=== PATIENT | female | born 1995 | race Caucasian/White ===

== ENCOUNTER 2018-09-25 10:24 | Inpatient (IN) | payer OTHER ==
[~2018-09-25] VITALS: Ht 172.7 cm; Wt 74.0 kg
[2018-09-26] MEDS ORDERED: VITAFOL-OB+DHA1 EACH PO (00:41)
[2018-09-26] MEDS ORDERED: IRON325 M1 PO (00:42)
--- NOTE | 2018-09-26 12:12 | PR ---
[facility] [address] [place], [place] [address] Signed Progress Notes IP Datetime Report Generated by CPAmber: 09/26/2018 12:12 PROGRESS NOTES: [id number] Impression: Normal progression of labor; Reassuring heart rate Procedures: Artificial ROM; Sterile Vag Exam Plan: Continue present management Informed Consent Obtain: Vaginal Delivery Other Informed Consents: Epidural on demand VITAL SIGNS: [id number] Vital Signs: Reviewed; Within Normal Limits EXAM: [id number] Dilatation: 3.0 Effacement: 80 Station: -3 Uterine Contractions: Irregular MEMBRANES: [id number] Membrane Status: Intact Comments: Pt seen and examined. Doing well. Uncomfortable w/ ctx. Cx now favorable. Recommend AROM and pt understands and agrees. After verbal consent and assuring vertex well applied, AROM performed without difficulty for moderate amount clear fluid. Mother and fetus tolerated well. Continue expectant management. Epidural on demand. Fetus A: [id number] FHR Baseline: 120 Variability: Moderate 6-25bpm Accelerations: 15X15 Decelerations: None FHR Category: Category I Presentation: Vertex Comments on Fetus A: No evidence of metabolic acidosis Fetus B: [id number] Signing Physician: Shabana Cary DO Copies: ~ *Electronically Signed* 09/26/18 1212 SHABANA CARY DO PATIENT NAME: WILLARD LOZANO PROGRESS NOTE DATE OF : 96 PHYSICIAN: SHABANA CARY DO [facility] #: [id number] REPORT IS CONFIDENTIAL AND NOT TO BE RELEASED WITHOUT AUTHORIZATION
--- NOTE | 2018-09-26 14:12 | PR ---
[facility] [address] [place], [place] [address] Signed Progress Notes IP Datetime Report Generated by CPN: 09/26/2018 14:12 PROGRESS NOTES: [id number] Impression: Normal progression of labor Procedures: Sterile Vag Exam Other Procedures: scalp stim Plan: Continue present management Other Plans: Intrauterine recussitation Informed Consent Obtain: Vaginal Delivery Other Informed Consents: Epidural on demand VITAL SIGNS: [id number] Vital Signs: Reviewed VS Notable Details: hypotenision noted after epidural EXAM: [id number] Dilatation: 5.0 Effacement: 90 Station: -2 Uterine Contractions: q2-4 minutes MEMBRANES: [id number] Membrane Status: Intact Comments: Late noted from 13:40. Presented to L_D for recurrent late decelerations. Pt s/p epidural. Comfortable w/ epidural. Some hypotension noted after epidural. Pt repositioned, fluid bolus started, and O2 applied. Continued moderate variability. Scalp stim performed with resulting acceleration noted. Continue intrauterine recussitation. Wll give ephedrine 5mg IV now. Continue to monitor closely. Fetus A: [id number] FHR Baseline: 140 Variability: Moderate 6-25bpm Accelerations: None Decelerations: Late FHR Category: Category II Presentation: Vertex Comments on Fetus A: Late decelerations noted; reassured by moderate variability and accel in response to scalp stim Fetus B: [id number] Signing Physician: Shabana Cary DO Copies: *Electronically Signed* 09/26/18 1740 SHABANA CARY DO PATIENT NAME: WILLARD LOZANO PROGRESS NOTE DATE OF : 96 PHYSICIAN: SHABANA CARY DO RPT #: [id number] REPORT IS CONFIDENTIAL AND NOT TO BE RELEASED WITHOUT AUTHORIZATION [address] [place], [place] [address] Signed ~ *Electronically Signed* 09/26/18 1412 SHABANA CARY DO PATIENT NAME: WILLARD LOZANO PROGRESS NOTE DATE OF : 96 PHYSICIAN: SHABANA CARY DO RPT #: [id number] REPORT IS CONFIDENTIAL AND NOT TO BE RELEASED WITHOUT AUTHORIZATION
--- NOTE | 2018-09-26 14:25 | PR ---
[facility] [address] [place], [place] [address] Signed Progress Notes IP Datetime Report Generated by CPAmber: 09/26/2018 14:25 PROGRESS NOTES: [id number] Impression: Normal progression of labor Procedures: Sterile Vag Exam Other Procedures: scalp stim Plan: Augmentation Other Plans: Intrauterine recussitation Informed Consent Obtain: Vaginal Delivery; Section Delivery Other Informed Consents: Epidural on demand VITAL SIGNS: [id number] Vital Signs: Reviewed; Within Normal Limits VS Notable Details: BPs improved w/ ephedrine EXAM: [id number] Dilatation: 5.0 Effacement: 90 Station: -2 Uterine Contractions: Irregular MEMBRANES: [id number] Membrane Status: Intact Comments: Continued intrauterine recusssitation. BPs have improved now s/p ephedrine. Continued IV fluid bolus. Discussed indications for continued trial of labor vs . Amniotic fluid clear and cervix stretchy. Will give terbutaline x 1 dose and monitor response. Pt understands and agrees. Fetus A: [id number] FHR Baseline: 150 Variability: Minimal - Undetectable to <5bpm Accelerations: None Decelerations: Late FHR Category: Category II Presentation: Vertex Comments on Fetus A: Late decelerations noted; reassured by moderate variability and accel in response to scalp stim Fetus B: [id number] Signing Physician: Shabana Cary DO Copies: *Electronically Signed* 09/26/18 2780 SHABANA CARY DO PATIENT NAME: WILLARD LOZANO PROGRESS NOTE DATE OF : 96 PHYSICIAN: SHABANA CARY DO RPT #: [id number] REPORT IS CONFIDENTIAL AND NOT TO BE RELEASED WITHOUT AUTHORIZATION [address] [address] Signed ~ *Electronically Signed* 09/26/18 1425 SHABANA CARY DO PATIENT NAME: WILLARD LOZANO PROGRESS NOTE DATE OF : 96 PHYSICIAN: SHABANA CARY DO RPT #: [id number] REPORT IS CONFIDENTIAL AND NOT TO BE RELEASED WITHOUT AUTHORIZATION
--- NOTE | 2018-09-26 14:45 | PR ---
[facility] [address] [place], [place] [address] Signed Progress Notes IP Datetime Report Generated by VINAYAK: 09/26/2018 14:45 PROGRESS NOTES: [id number] Impression: Normal progression of labor; Reassuring heart rate Procedures: Sterile Vag Exam Other Procedures: scalp stim Plan: Continue present management Other Plans: Intrauterine recussitation Informed Consent Obtain: Vaginal Delivery; Section Delivery Other Informed Consents: Epidural on demand VITAL SIGNS: [id number] Vital Signs: Reviewed; Within Normal Limits VS Notable Details: BPs improved w/ ephedrine EXAM: [id number] Dilatation: 5.0 Effacement: 90 Station: -2 Uterine Contractions: q1-4 minutes MEMBRANES: [id number] Membrane Status: Intact Comments: Pt seen and evaluated. Late decelerations have resolved. Minimal variability remains. Ctxs spacing secondary to terbutaline. Will continue to monitor closely. Reviewed w/ pt. All questions answered. Fetus A: [id number] FHR Baseline: 140 Variability: Minimal - Undetectable to <5bpm Accelerations: None Decelerations: None FHR Category: Category II Presentation: Vertex Comments on Fetus A: Late decelerations have resolved. Minimal variablity Fetus B: [id number] Signing Physician: Shabana Cary DO Copies: ~ *Electronically Signed* 09/26/18 1445 SHABANA CARY DO PATIENT NAME: WILLARD LOZANO PROGRESS NOTE DATE OF : 96 PHYSICIAN: SHABANA CARY DO RPT #: [id number] REPORT IS CONFIDENTIAL AND NOT TO BE RELEASED WITHOUT AUTHORIZATION
--- NOTE | 2018-09-26 14:53 | PR ---
[facility] [address] [place], [place] [address] Signed Progress Notes IP Datetime Report Generated by VINAYAK: 09/26/2018 14:53 PROGRESS NOTES: [id number] Impression: Normal progression of labor; Reassuring heart rate Procedures: Scalp Electrode; Sterile Vag Exam Other Procedures: scalp stim Plan: Continue present management Other Plans: Intrauterine recussitation Informed Consent Obtain: Vaginal Delivery Other Informed Consents: Epidural on demand VITAL SIGNS: [id number] Vital Signs: Reviewed; Within Normal Limits VS Notable Details: BPs improved w/ ephedrine EXAM: [id number] Dilatation: 7.0 Effacement: 90 Station: -1 Uterine Contractions: q2-4 mintues MEMBRANES: [id number] Membrane Status: Intact Comments: Pt seen and examined. Reviewed late decelerations have resolved. Recommended FSE. FSE placed without difficulty. Acceleration noted in response to scalp stim. Will continue to monitor Fetus A: [id number] FHR Baseline: 140 Variability: Minimal - Undetectable to <5bpm Accelerations: 15X15 Decelerations: None FHR Category: Category II Presentation: Vertex Other Presentation: LYNDSEY Comments on Fetus A: No evidence of metabolic acidosis Fetus B: [id number] Signing Physician: Shabana Cary DO Copies: *Electronically Signed* 09/26/18 1453 SHABANA CARY DO PATIENT NAME: WILLARD LOZANO PROGRESS NOTE DATE OF : 96 PHYSICIAN: SHABANA CARY DO RPT #: [id number] REPORT IS CONFIDENTIAL AND NOT TO BE RELEASED WITHOUT AUTHORIZATION [facility] [address] [place] [id number] Signed ~ *Electronically Signed* 09/26/18 1453 SHABANA CARY DO PATIENT NAME: WILLARD LOZANO PROGRESS NOTE DATE OF : 96 PHYSICIAN: SHABANA CARY DO RPT #: [id number] REPORT IS CONFIDENTIAL AND NOT TO BE RELEASED WITHOUT AUTHORIZATION
--- NOTE | 2018-09-26 15:51 | PR ---
[facility] [address] [place], [place] [address] Signed Progress Notes IP Datetime Report Generated by VINAYAK: 09/26/2018 15:51 PROGRESS NOTES: [id number] Impression: Normal progression of labor; Reassuring heart rate Procedures: Scalp Electrode; Sterile Vag Exam Other Procedures: scalp stim Plan: Continue present management Other Plans: Intrauterine recussitation Informed Consent Obtain: Vaginal Delivery Other Informed Consents: Epidural on demand VITAL SIGNS: [id number] Vital Signs: Reviewed; Within Normal Limits VS Notable Details: BPs improved w/ ephedrine EXAM: [id number] Dilatation: 7.0 Effacement: 90 Station: -1 Uterine Contractions: q 2-5 minutes MEMBRANES: [id number] Membrane Status: Intact Comments: Pt seen and evaluated. Comfortable w/ epidural. Reviewed category 1 tracing. Reviewed anticipate course of labor and delivery. All questions answered. O2 removed. Fetus A: [id number] FHR Baseline: 130 Variability: Moderate 6-25bpm Accelerations: 15X15 Decelerations: None FHR Category: Category I Presentation: Vertex Other Presentation: LYNDSEY Comments on Fetus A: No evidence of metabolic acidosis Fetus B: [id number] Signing Physician: Shabana Cary DO Copies: *Electronically Signed* 09/26/18 1554 SHABANA CARY DO PATIENT NAME: WILLARD LOZANO PROGRESS NOTE DATE OF : 96 PHYSICIAN: SHABANA CARY DO RPT #: [id number] REPORT IS CONFIDENTIAL AND NOT TO BE RELEASED WITHOUT AUTHORIZATION [facility] [address] [place] [address] Signed ~ *Electronically Signed* 09/26/18 1551 SHABANA CARY DO PATIENT NAME: WILLARD LOZANO PROGRESS NOTE DATE OF : 96 PHYSICIAN: SHABANA CARY DO RPT #: [id number] REPORT IS CONFIDENTIAL AND NOT TO BE RELEASED WITHOUT AUTHORIZATION
--- NOTE | 2018-09-26 18:20 | PR ---
[facility] [address] [place], [place] [address] Signed Progress Notes IP Datetime Report Generated by VINAYAK: 09/26/2018 18:19 PROGRESS NOTES: [id number] Impression: Normal progression of labor; Reassuring heart rate Procedures: Sterile Vag Exam Other Procedures: scalp stim Plan: Continue present management; Anticipate Vaginal Delivery Other Plans: Intrauterine recussitation Informed Consent Obtain: Vaginal Delivery Other Informed Consents: Epidural on demand VITAL SIGNS: [id number] Vital Signs: Reviewed; Within Normal Limits VS Notable Details: BPs improved w/ ephedrine EXAM: [id number] Dilatation: 9.5 Effacement: 100 Station: -1 Uterine Contractions: q 2-5 min MEMBRANES: [id number] Membrane Status: Intact Comments: Pt seen and examined. Doing well. Comfortable w/ ctxs. Anticipated soon. Reviewed anticipated course of remainder labor/delivery. All questions answered Fetus A: [id number] FHR Baseline: 125 Variability: Moderate 6-25bpm Accelerations: 15X15 Decelerations: None FHR Category: Category I Presentation: Vertex Other Presentation: LYNDSEY Comments on Fetus A: No evidence of metabolic acidosis Fetus B: [id number] Signing Physician: Shabana Cary DO Copies: *Electronically Signed* 09/26/18 1819 SHABANA CARY DO PATIENT NAME: WILLARD LOZANO PROGRESS NOTE DATE OF : 96 PHYSICIAN: SHABANA CARY DO RPT #: [id number] REPORT IS CONFIDENTIAL AND NOT TO BE RELEASED WITHOUT AUTHORIZATION [facility] [address] [place] [address] [place] [address] Signed ~ *Electronically Signed* 09/26/18 181 SHABANA CARY DO PATIENT NAME: WILLARD LOZANO PROGRESS NOTE DATE OF : 96 PHYSICIAN: SHABANA CARY DO RPT #: [id number] REPORT IS CONFIDENTIAL AND NOT TO BE RELEASED WITHOUT AUTHORIZATION
--- NOTE | 2018-09-26 19:47 | PR ---
[facility] [address] [place], [place] [address] Signed Progress Notes IP Datetime Report Generated by CPN: 09/26/2018 19:47 PROGRESS NOTES: [id number] Impression: Normal progression of labor; Reassuring heart rate Procedures: Sterile Vag Exam Other Procedures: scalp stim Plan: Anticipate Vaginal Delivery Other Plans: Intrauterine recussitation Informed Consent Obtain: Vaginal Delivery Other Informed Consents: Epidural on demand VITAL SIGNS: [id number] Vital Signs: Reviewed; Within Normal Limits VS Notable Details: BPs improved w/ ephedrine EXAM: [id number] Dilatation: 10.0 Effacement: 100 Station: 1 Uterine Contractions: q 2-3 minutes MEMBRANES: [id number] Membrane Status: Intact Comments: Pt seen and examined. Doing well. Starting to pressure and urge to push. Reviewed 2nd stage of labor. Anticipate soon. Fetus A: [id number] FHR Baseline: 125 Variability: Moderate 6-25bpm Accelerations: 15X15 Decelerations: None FHR Category: Category I Presentation: Vertex Other Presentation: LYNDSEY Comments on Fetus A: No evidence of metabolic acidosis Fetus B: [id number] Signing Physician: Shabana Cary DO Copies: ~ *Electronically Signed* 09/26/181946 SHABANA CARY DO PATIENT NAME: WILLARD LOZANO PROGRESS NOTE DATE OF : 96 PHYSICIAN: SHABANA CARY #: [id number] REPORT IS CONFIDENTIAL AND NOT TO BE RELEASED WITHOUT AUTHORIZATION
--- NOTE | 2018-09-27 10:27 | PR ---
[facility] [address] [facility] [place], [place] [address] Signed PP Progress Notes Datetime Report Generated by CPN: 09/27/2018 10:27 SUBJECTIVE: [id number] Pain: Within normal limits Nausea/Vomiting: Denies Flatus: No Bowel Movement: No Vital Signs: [id number] Vital Signs: Reviewed; Within Normal Limits EXAM: [id number] Cardiovascular: Normal Respiratory: Normal Abdomen/Uterus: Normal Lochia: Normal Vulva/Perineum: Not Done Breasts: Not Done CVA Tenderness: Normal Extremities: Normal Incision: Not Applicable Progress: Normal Exam Comments: Fundus firm U-2 nontender. Vulva edematous per RN. Marylou cath in place IMPRESSION/PLAN/PROCEDURES: [id number] Impression: Normal progression Plan: Continue present management Signing Physician: Shabana Cary DO Copies: ~ *Electronically Signed* 09/27/18 1027 SHABANA CARY DO PATIENT NAME: WILLARD LOZANO PROGRESS NOTE DATE OF : 96 PHYSICIAN: SHABANA CARY DO RPT #: [id number] REPORT IS CONFIDENTIAL AND NOT TO BE RELEASED WITHOUT AUTHORIZATION
--- NOTE | 2018-09-28 12:05 | PR ---
[facility] [address] [place], [place] [address] Signed PP Progress Notes Datetime Report Generated by CPN: 09/28/2018 12:05 SUBJECTIVE: [id number] Pain: Within normal limits Nausea/Vomiting: Denies Flatus: Yes Bowel Movement: No Vital Signs: [id number] Vital Signs: Reviewed; Within Normal Limits EXAM: [id number] Cardiovascular: Normal Respiratory: Normal Abdomen/Uterus: Normal Lochia: Normal Vulva/Perineum: Not Done Breasts: Not Done CVA Tenderness: Normal Extremities: Normal Incision: Not Applicable Progress: Normal Exam Comments: Fundus firm U-2 nontender. Vulvar improved per RN IMPRESSION/PLAN/PROCEDURES: [id number] Impression: Normal progression Plan: Discharge Progress Notes: Pt seen and examined. Doing well. Ambulating, voiding, and tolerating full diet. Pain and lochia minimal. well. Hgb 9.6. Discharge home today. Reviewed d/c teaching / instructions in detail. Signing Physician: Shabana Cary DO Copies: ~ *Electronically Signed* 09/28/18 9627 SHABANA CARY DO PATIENT NAME: WILLARD LOZANO PROGRESS NOTE DATE OF : 96 PHYSICIAN: SHABANA CARY DO RPT #: [id number] REPORT IS CONFIDENTIAL AND NOT TO BE RELEASED WITHOUT AUTHORIZATION
== END 2018-09-28 13:25 | disposition home or self-care (01) | DRG 807 ==
LOC: FBC 10:24
PROVIDERS: ADMIT Obstetrics & Gynecology
PROC: 10E0XZZ Delivery of Products of Conception, External Approach (ICD-10-PCS; principal; 2018-09-26)
PROC: 0KQM0ZZ Repair Perineum Muscle, Open Approach (ICD-10-PCS; 2018-09-26)
PROC: 0UQMXZZ Repair Vulva, External Approach (ICD-10-PCS; 2018-09-26)
PROC: 3E0P7VZ Introduction of Hormone into Female Reproductive, Via Natural or Artificial Opening (ICD-10-PCS; 2018-09-26)
PROC: 10907ZC Drainage of Amniotic Fluid, Therapeutic from Products of Conception, Via Natural or Artificial Opening (ICD-10-PCS; 2018-09-26)
PROC: 00HU33Z Insertion of Infusion Device into Spinal Canal, Percutaneous Approach (ICD-10-PCS; 2018-09-26)
PROC: 3E0R3BZ Introduction of Anesthetic Agent into Spinal Canal, Percutaneous Approach (ICD-10-PCS; 2018-09-26)
DX: O76 Abnormality in fetal heart rate and rhythm complicating labor and delivery (principal); Z37.0 Single live birth; O70.1 Second degree perineal laceration during delivery; Z3A.39 39 weeks gestation of pregnancy; O74.2 Cardiac complications of anesthesia during labor and delivery; I95.2 Hypotension due to drugs; O71.82 Other specified trauma to perineum and vulva; Y92.239 Unspecified place in hospital as the place of occurrence of the external cause; Z86.19 Personal history of other infectious and parasitic diseases
CPT/HCPCS: 01960; 36415; 85027; J2590; J2795; J3010; J3105; J7120